=== PATIENT | male | born 1970 | race Caucasian/White ===

== ENCOUNTER 2017-01-02 11:43 | Emergency (ER) | payer OTHER ==
[~2017-01-02] VITALS: Ht 175.3 cm; Wt 82.2 kg
[2017-01-02 12:45] LABS: HEMATOCRIT 38.4 % (38.0-50.0); MCH 29.9 PG (29.0-34.0); MCHC 34.1 G/DL (30.0-36.0); MCV 87.7 FL (86-99); MEAN PLAT.VOLUME 10.1 uM^3 (9.0-12.4); PLATELET COUNT 229 K/uL (156-360); RBC DIS.WIDTH-CV 12.9 % (11.8-14.6); RBC DIS.WIDTH-SD 41.1 % (39-53); RED BLOOD COUNT 4.38 M/uL (4.00-5.50); WHITE BLOOD COUNT 7.6 K/uL (4.1-10.2)
[2017-01-02 12:59] LABS: CHLORIDE 103 mEq/L (99-109); POTASSIUM 4.3 mEq/L (3.7-5.4); SODIUM 137 mEq/L (136-147)
[2017-01-02 13:01] LABS: GLUCOSE 163 mg/dL (70-99)
[2017-01-02 13:02] LABS: ANION GAP 10 MEQ/L (2-14)
[2017-01-02 13:03] LABS: TOTAL BILIRUBIN 0.4 mg/dL (0.0-1.0)
[2017-01-02 13:05] LABS: ALKALINE PHOSPHATASE 71 IU/L (3-129); GFR ESTIMATE (CALCULATED) > 59 mL/min/
[2017-01-02 13:06] LABS: UREA NITROGEN (BUN) 14 mg/dL (9-23)
[2017-01-02 14:04] LABS: ADD MIUA? NO; BILIRUBIN NEGATIVE; BLOOD NEGATIVE; COLOR STRAW ((YELLOW)); GLUCOSE (STRIP) NEGATIVE; KETONES NEGATIVE; LEUKOCYTES NEGATIVE; NITRITE NEGATIVE; PROTEIN (STRIP) NEGATIVE; SPECIFIC GRAVITY 1.005 (1.000-1.030); UCUL ADDED? NO; UROBILINOGEN 0.2 MG/DL (0.2-1.0)
[2017-01-02] MEDS ORDERED: BENTYL20 MG PO (15:16)
[2017-01-02 15:53] VITALS: BP 115/75
== END 2017-01-02 15:54 | disposition home or self-care (01) ==
LOC: EME 11:43
DX: R10.9 Unspecified abdominal pain (principal); K64.4 Residual hemorrhoidal skin tags; K62.5 Hemorrhage of anus and rectum; F17.200 Nicotine dependence, unspecified, uncomplicated
CPT/HCPCS: 74020; 80053; 81003; 85027; 99281; 99284

== ENCOUNTER 2017-01-10 17:42 | Emergency (ER) | payer OTHER ==
[~2017-01-10] VITALS: Ht 175.3 cm; Wt 80.8 kg
[~2017-01-10 17:42] MED LIST: BENTYL20 MG PO
[2017-01-10 17:54] VITALS: BP 106/60
[2017-01-10 18:46] LABS: HEMATOCRIT 42.3 % (38.0-50.0); MCH 28.5 PG (29.0-34.0); MCHC 32.6 G/DL (30.0-36.0); MCV 87.4 FL (86-99); MEAN PLAT.VOLUME 9.2 uM^3 (9.0-12.4); PLATELET COUNT 238 K/uL (156-360); RBC DIS.WIDTH-CV 13.1 % (11.8-14.6); RBC DIS.WIDTH-SD 41.8 % (39-53); RED BLOOD COUNT 4.84 M/uL (4.00-5.50); WHITE BLOOD COUNT 8.5 K/uL (4.1-10.2)
[2017-01-10 18:58] LABS: CHLORIDE 109 mEq/L (99-109); POTASSIUM 3.9 mEq/L (3.7-5.4); SODIUM 146 mEq/L (136-147)
[2017-01-10 19:00] LABS: GLUCOSE 100 mg/dL (70-99)
[2017-01-10 19:01] LABS: ANION GAP 13 MEQ/L (2-14)
[2017-01-10 19:03] LABS: GFR ESTIMATE (CALCULATED) > 59 mL/min/
[2017-01-10 19:04] LABS: UREA NITROGEN (BUN) 14 mg/dL (9-23)
== END 2017-01-10 18:30 | disposition left against medical advice (07) ==
LOC: EME 17:42
DX: R06.02 Shortness of breath (principal); Z53.21 Procedure and treatment not carried out due to patient leaving prior to being seen by health care provider
CPT/HCPCS: 71020; 80048; 85027